=== PATIENT | female | born 2000 | race Hispanic/Latino ===

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

== ENCOUNTER 2023-05-29 17:44 | Observation (INO) | payer BC, MEDICAID ==
[~2023-05-29] VITALS: Ht 152.4 cm; Wt 77.1 kg
[~2023-05-29 17:44] MED LIST changes: +DIPH-1242 PO; +FERS325 PO; +PREN-196 PO; +PREN1TAB63 PO
[2023-05-29 17:45] VITALS: BP 139/74; PULSE 98; RESP 18
[2023-05-29 19:01] LABS: APPEARANCE,URINE CLEAR (CLEAR); BILIRUBIN,URINE NEGATIVE (NEGATIVE); COLOR,URINE COLORLESS (YELLOW); GLUCOSE, URINE (UA) NEGATIVE (NEGATIVE); KETONES,URINE NEGATIVE (NEGATIVE); LEUKOCYTE ESTERASE ,URINE NEGATIVE Leu/uL (NEGATIVE); NITRATE,URINE NEGATIVE (NEGATIVE); OCCULT BLOOD,URINE NEGATIVE (NEGATIVE); PROTEIN,URINE NEGATIVE (NEGATIVE); UROBILINOGEN,URINE 0.2 mg/dL (0.2-1.0)
[2023-05-29 19:04] LABS: ADD UA MICROSCOPIC YES
[2023-05-29 19:06] LABS: BACTERIA,URINE FEW /HPF (None Seen); MUCUS,URINE RARE LPF (None Seen); RBC,URINE 0-1 /HPF (0-1); SQUAMOUS EPITHELIAL CELL,UR FEW /HPF (0-2)
[2023-05-29] MEDS ORDERED: LACTATED RINGERS 1000ML IV SCH (19:30)
== END 2023-05-29 20:50 | disposition home or self-care (01) ==
LOC: EDH 17:44 → LDH 17:45
PROVIDERS: ADMIT Obstetrics & Gynecology; ATTEND Obstetrics & Gynecology
DX: O26.893 Other specified pregnancy related conditions, third trimester (principal); R10.9 Unspecified abdominal pain; Z87.891 Personal history of nicotine dependence; Z3A.36 36 weeks gestation of pregnancy
CPT/HCPCS: 96360; 81001; G0378 ×3; G0379